=== PATIENT | female | born 1985 | race Two or more races ===

== ENCOUNTER 2024-10-18 14:30 | Inpatient (IN) | payer OTHER ==
[~2024-10-18] VITALS: Ht 165.1 cm; Wt 77.1 kg
[2024-11-02] VITALS (10 sets, daily range): BP systolic 104–138; BP diastolic 67–84
[2024-11-02] MEDS ORDERED: AMPICILLIN SODIUM 2,000 MG VIAL ONE (00:44)
[2024-11-02] MEDS ORDERED: AMPICILLIN SODIUM 2,000 MG VIAL IV ONE (00:45)
[2024-11-02] MEDS ORDERED: RINGERS SOLUTION,LACTATED 1,000 ML IV SCH (00:45)
[2024-11-02] MEDS ORDERED: COLACE100 MG PO (01:21)
[2024-11-02] MEDS ORDERED: PRENATA CHEWAB1 EACH PO (01:21)
[2024-11-02] MEDS ORDERED: CHILDREN'S ASPI81 MG PO (01:22)
[2024-11-02 01:28] LABS: BASO % 0.4 % (0.1-1.2); EOS # 0.06 (0.04-0.54); EOS % 0.7 % (0.7-7.0); HEMATOCRIT 36.8 % (34.1-44.9); HEMOGLOBIN 12.2 g/dL (11.2-15.7); LYMPH # 2.35 (1.18-3.74); MEAN CORPUSCULAR HEMOGLOBIN 27.1 pg (25.6-32.2); MONO % 6.2 % (4.7-12.5); NEUT # 5.13 (1.56-6.13); NEUT % 63.3 % (34.0-71.1); PLATELET COUNT 195 K/uL (163-369)
[2024-11-02] MEDS ORDERED: CHLORHEXIDINE GLUCONATE 120 ML BOTTLE TOP ONE ×2 (01:32→02:45)
[2024-11-02] MEDS ORDERED: OXYTOCIN 20 UNITS/1000ML RL PIGGYBAG IV ONE (01:32)
[2024-11-02] MEDS ORDERED: ERYTHROMYCIN BASE OPHT 1GM EACH TUBE OP ONE ×2 (01:32→02:45)
[2024-11-02] MEDS ORDERED: LIDOCAINE HCL 1% 10ML VIAL ONE (01:33)
[2024-11-02 01:51] LABS: INR < 0.93; PARTIAL THROMBOPLASTIN TIME 25.8 SECONDS (22.0-34.0); PROTHROMBIN TIME 10.2 SECONDS (9.0-11.5)
[2024-11-02 01:53] LABS: ALBUMIN 2.9 gm/dL (3.4-5.0); BILIRUBIN TOTAL 0.28 mg/dL (0.3-1.2); CALCIUM 8.9 mg/dL (8.5-10.1); CREATININE SERUM 0.7 mg/dL (0.55-1.02); GFR 93.16; GLOBULINA 3.8 G/DL (2.4-3.5); POTASSIUM 3.97 mEq/L (3.5-5.1); TOTAL PROTEIN 6.7 gm/dL (6.4-8.2)
[2024-11-02] MEDS ORDERED: OXYTOCIN 10 UNITS/ML VIAL ONE (02:08)
[2024-11-02] MEDS ORDERED: IBUprofen 400 MG TABLET PO PRN (02:30)
[2024-11-02] MEDS ORDERED: OxyCODONE HCL 5 MG TABLET (ROXICODONE) PO PRN (02:30)
[2024-11-02] MEDS ORDERED: OXYTOCIN 1,000 ML IV SCH (02:30)
[2024-11-02] MEDS ORDERED: LIDOCAINE HCL 1% 10ML VIAL IJ ONE (02:45)
[2024-11-02] MEDS ORDERED: OXYTOCIN 10 UNITS/ML VIAL IV ONE (02:45)
[2024-11-02] MEDS ORDERED: AMPICILLIN SODIUM 1,000 MG VIAL IV SCH (04:00)
[2024-11-02] MEDS ORDERED: ACETAMINOPHEN 325 MG TABLET PO PRN (07:45)
[2024-11-03 01:35] VITALS: BP 111/69
[2024-11-03 05:26] LABS: BASO % 0.5 % (0.1-1.2); EOS # 0.07 (0.04-0.54); EOS % 0.9 % (0.7-7.0); HEMOGLOBIN 10.8 g/dL (11.2-15.7); LYMPH # 2.49 (1.18-3.74); LYMPH % 32.1 % (19.3-53.1); MEAN CORPUSCULAR HEMOGLOBIN 28.3 pg (25.6-32.2); MONO # 0.48 (0.24-0.82); MONO % 6.2 % (4.7-12.5); NEUT # 4.65 (1.56-6.13); NEUT % 59.9 % (34.0-71.1); PLATELET COUNT 161 K/uL (163-369); RED BLOOD COUNT 3.82 M/uL (3.93-5.22); RED CELL DISTRIBUTION WIDTH 13.3 % (11.6-14.4)
[2024-11-03 08:00] VITALS: BP 108/73
[2024-11-03 17:00] VITALS: BP 130/82
[2024-11-03 21:00] VITALS: BP 117/74
[2024-11-04] VITALS: BP 105/69
[2024-11-04 08:00] VITALS: BP 112/75
== END 2024-11-04 12:08 | disposition home or self-care (01) | DRG 807 ==
LOC: OB/GYN 11-02 00:43 → LDR 11-02 00:43 → OB/GYN 11-02 02:46 → LDR 11-02 07:39 → OB/GYN 11-02 08:52 → LDR 11-02 14:30 → OB/GYN 11-04 12:08
PROVIDERS: Obstetrics & Gynecology; ADMIT Obstetrics & Gynecology; ATTEND Obstetrics & Gynecology
PROC: 10E0XZZ Delivery of Products of Conception, External Approach (ICD-10-PCS; principal; 2024-11-02)
PROC: 0KQM0ZZ Repair Perineum Muscle, Open Approach (ICD-10-PCS; 2024-11-02)
PROC: 4A1HXCZ Monitoring of Products of Conception, Cardiac Rate, External Approach (ICD-10-PCS; 2024-11-02)
DX: O70.1 Second degree perineal laceration during delivery (principal); O69.81X0 Labor and delivery complicated by cord around neck, without compression, not applicable or unspecified; O99.824 Streptococcus B carrier state complicating childbirth; Z37.0 Single live birth; Z3A.40 40 weeks gestation of pregnancy